=== PATIENT | male | born 1995 | race Caucasian/White ===

== ENCOUNTER 2017-07-27 12:38 | Emergency (ER) | payer SELFPAY ==
[~2017-07-27] VITALS: Ht 185.4 cm; Wt 70.3 kg
--- NOTE | 2017-07-27 13:03 | ED Lower Extremity ---
General Chief Complaint: Laceration Stated Complaint: LEFT LEG LACERATION Source: patient Exam Limitations: no limitations History of Present Illness Date Seen by Provider: July 27, 2017 Time Seen by Provider: 12:50 Initial Comments To ER with reports of left leg laceration. He was working on his car when the wendy fell. On the way down, a sharp object lacerated the anterior left knee just proximal to the patella. The car did not actually fall on him and crush him , only scraped him on the way down Onset: just prior to arrival Severity: moderate Pain/Injury Location: left knee Allergies and Home Medications Allergies Coded Allergies: No Known Drug Allergies (Unverified , 07/27/17) Home Medications No Active Prescriptions or Reported Meds Patient Home Medication List Home Medication List Reviewed: Yes Constitutional: see HPI EENTM: see HPI Respiratory: no symptoms reported Cardiovascular: no symptoms reported Musculoskeletal: no symptoms reported Skin: see HPI Psychiatric/Neurological: No Symptoms Reported Past Lhxetht-Apfajf-Snlelg Hx Patient Social History Recent Foreign Travel: No Contact w/Someone Who Travel: No Physical Exam Vital Signs Vital Signs - First Documented 07/27/17 12:50 Temp 98.0 Pulse 78 Resp 18 B/P (MAP) 113/75 (88) Pulse Ox 99 O2 Delivery Room Air Capillary Refill : General Appearance: WD/WN, no apparent distress HEENT: PERRL/EOMI, normal ENT inspection Neck: non-tender, full range of motion Respiratory: no respiratory distress, no accessory muscle use Gastrointestinal: normal bowel sounds, non tender Hips: bilateral hip non-tender, bilateral hip normal inspection, bilateral hip normal range of motion Legs: bilateral leg non-tender, bilateral leg normal inspection, bilateral leg normal range of motion Knees: left knee other (There is a 2 cm laceration to the anterior aspect of the left knee proximal to the patella with depth to the subcutaneous tissues) Ankles: bilateral ankle non-tender, bilateral ankle normal inspection, bilateral ankle normal range of motion Feet: bilateral foot non-tender, bilateral foot normal inspection, bilateral foot normal range of motion Neurologic/Psychiatric: alert, normal mood/affect, oriented x 3 Skin: normal color, warm/dry Procedures/Interventions Wound Location: Lower Extremities Wound Length (cm): 2 Wound's Depth, Shape: linear, sub Q Irrigated w/ Saline (ccs): 250 Anesthesia: 1% Lidocaine Volume Anesthetic (ccs): 2 Suture: Prolene Suture Size: 4-0 Number of Sutures: 5 Layer Closure?: 1 Number Deep Layer Sutures: 0 Progress Area was anesthetized with 2 mL of 2% lidocaine without epinephrine. Wound was then scrubbed with chlorhexidine/saline solution. No foreign bodies were identified. No deep puncture wounds identified. This was then closed with 5 simple interrupted sutures size 4-0 Prolene via KIRSTEN Guevara student and supervised by me. Progress/Results/Core Measures Results/Orders My Orders Orders - MARIBELL ARCE APRN Knee, Left, 3 Views (07/27/17 12:49) Vital Signs/I&O 07/27/17 12:50 Temp 98.0 Pulse 78 Resp 18 B/P (MAP) 113/75 (88) Pulse Ox 99 O2 Delivery Room Air Departure Impression Primary Impression: Leg laceration Disposition: 01 HOME, SELF-CARE Condition: Stable Departure-Patient Inst. Decision time for Depature: 13:05 Referrals: NO,LOCAL PHYSICIAN (PCP/Family) Primary Care Physician Patient Instructions: Laceration Repair With Stitches (DC) Add. Discharge Instructions: 1. Return to ER to have the stitches removed in 7-10 days, probably closer to the ten-day patricio. Do not submerge this in water such as a bathtub hot tub or swimming pool until the stitches have been removed. However, you may shower water run over it starting tomorrow. Scripts No Active Prescriptions or Reported Meds MARIBELL ARCE APRN July 27, 2017 13:03
--- NOTE | 2017-07-27 13:17 | Diagnostic Imaging Report ---
INDICATION: Left knee injury. FINDINGS: Three views of the left knee show no fracture, dislocation or radiopaque foreign object. IMPRESSION: Negative left knee. Dictated by: Dictated on workstation # [id number]
[2017-07-27 14:02] VITALS: BP 100/72
== END 2017-07-27 14:02 | disposition home or self-care (01) ==
LOC: ER 12:41
DX: S81.812A Laceration without foreign body, left lower leg, initial encounter (principal); W26.8XXA Contact with other sharp object(s), not elsewhere classified, initial encounter
CPT/HCPCS: 12001; 73562